=== PATIENT | female | born 1965 | race Caucasian/White ===

== ENCOUNTER → 2016-10-16 | Outpatient (CLI) | payer OTHER ==
[~2016-10-16] MED LIST: ACET-1256 PO; CALC600T24 PO; IBUP-1050 PO; MULT-413 PO; TRAM-10 PO; VITBC PO
--- NOTE | 2016-10-16 11:15 | DIAGNOSTIC IMAGING REPORT ---
PELVIC ULTRASOUND, TRANSABDOMINAL AND TRANSVAGINAL HISTORY: N93.9 Abnormal uterine [id number] COMPARISON: None. FINDINGS: Uterus: 8.1 x 4.3 x 4.4 cm. No uterine masses. The uterus is retroflexed. Endometrial stripe: 3 mm in thickness. Right ovary: Obscured by overlying bowel gas. Left ovary: Normal in size and demonstrates normal color flow. Miscellaneous:No pelvic free fluid. IMPRESSION: The right ovary was obscured by overlying bowel gas. Otherwise, normal pelvic ultrasound. Electronically signed by: Easton Crawford M.D. 10/16/2016 11:14 AM Dictated Date/Time: 10/16/2016 11:12 AM
--- NOTE | 2016-10-16 15:20 | DIAGNOSTIC IMAGING REPORT ---
PELVIC ULTRASOUND, TRANSABDOMINAL AND TRANSVAGINAL HISTORY: N93.9 Abnormal uterine [id number] COMPARISON: None. FINDINGS: Uterus: 8.1 x 4.3 x 4.4 cm. No uterine masses. The uterus is retroflexed. Endometrial stripe: 3 mm in thickness. Right ovary: Obscured by overlying bowel gas. Left ovary: Normal in size and demonstrates normal color flow. Miscellaneous:No pelvic free fluid. IMPRESSION: The right ovary was obscured by overlying bowel gas. Otherwise, normal pelvic ultrasound. Electronically signed by: Easton Crawford M.D. 10/16/2016 11:14 AM Dictated Date/Time: 10/16/2016 11:12 AM
== END | disposition home or self-care (01) ==
LOC: C.ULTR 10:35
PROVIDERS: ATTEND Obstetrics & Gynecology
DX: N93.9 Abnormal uterine and vaginal bleeding, unspecified (principal)

== ENCOUNTER → 2016-10-20 | Outpatient (CLI) | payer OTHER ==
--- NOTE | 2016-10-21 12:35 | MAMMOGRAPHY REPORT ---
BILATERAL DIGITAL SCREENING MAMMOGRAM TOMOSYNTHESIS WITH CAD: 10/20/2016 CLINICAL HISTORY: Routine screening. Patient has no complaints. TECHNIQUE: Breast tomosynthesis in addition to standard 2D mammography was performed. Current study was also evaluated with a Computer Aided Detection (CAD) system. COMPARISON: Comparison is made to exams dated: 10/17/2015 mammogram, 10/02/2013 mammogram, 10/04/2014 mammogram, 07/28/2012 mammogram, 07/31/2011 ultrasound, and 07/08/2009 mammogram - [facility]. BREAST COMPOSITION: The tissue of both breasts is heterogeneously dense, which may obscure small ma sses. FINDINGS: The parenchymal pattern is similar to prior exams. No developing mass, architectural dist ortion or cluster of suspicious microcalcifications is seen. IMPRESSION: ACR BI-RADS CATEGORY 2: BENIGN There is no mammographic evidence of malignancy. A 1 year screening mammogram is recommended. The p atient will receive written notification of the results. Approximately 10% of breast cancers are not detected with mammography. A negative mammographic repor t should not delay biopsy if a clinically suggestive mass is present. Lyndsey Hung M.D. ay/:10/20/2016 17:02:32 Corporate Quality Manager: Ailyn COBB(R)(M), [facility] letter sent: Normal 1/2 BI-RADS Code: ACR BI-RADS Category 2: Benign
== END | disposition home or self-care (01) ==
LOC: C.MAMM 09:03
PROVIDERS: ATTEND Obstetrics & Gynecology
DX: Z12.31 Encounter for screening mammogram for malignant neoplasm of breast (principal)

== ENCOUNTER → 2016-11-18 | Outpatient (CLI) | payer OTHER ==
[2016-11-18 14:40] LABS: BASO % 0.4 %; BASO ABS # 0.02 K/uL (0-0.2); COMPLETE YES; EOS % 2.3 %; HEMATOCRIT 41.7 % (37-47); LYMPH % 21.9 %; LYMPH ABS # 1.04 K/uL (1.2-3.4); MEAN CELL VOLUME 86.3 fL (80-100); MEAN CORPUSCULAR HGB CONC 33.6 g/dl (32-36); MEAN PLATELET VOLUME 10.8 fL (7.4-10.4); MONO % 7.4 %; PLATELET COUNT 222 K/uL (130-400); RED BLOOD COUNT 4.83 M/uL (4.2-5.4); WHITE BLOOD COUNT 4.75 K/uL (4.8-10.8)
[2016-11-18 15:04] LABS: ALT/SGPT 12 U/L (12-78); BLOOD UREA NITROGEN 14 mg/dl (7-18); BUN/CREATININE RATIO 19.6 (10-20); CARBON DIOXIDE 33 mmol/L (21-32); CHLORIDE 104 mmol/L (98-107); CREATININE 0.69 mg/dl (0.60-1.20); GLUCOSE 90 mg/dl (70-99); SODIUM 141 mmol/L (136-145); TRIGLYCERIDES 142 mg/dl (0-150); VERY LOW DENSITY LIPOPROT CALC 28 mg/dl
[2016-11-18 15:14] LABS: ALB/GLOB RATIO 1.2 (0.9-2); ALKALINE PHOSPHATASE 45 U/L (45-117); AST/SGOT 14 U/L (15-37); CHOLESTEROL 197 mg/dl (0-200); CHOLESTEROL/HDL RATIO 2.5; HDL CHOLESTEROL 78 mg/dl; LDL CHOLESTEROL CALCULATED 91 mg/dl
[2016-11-18 15:50] LABS: LYME DISEASE AB IGG NEG (NEG); LYME DISEASE AB IGM NEG (NEG)
== END | disposition home or self-care (01) ==
LOC: C.LABBC 10:14
PROVIDERS: ATTEND Internal Medicine Geriatric Medicine
DX: Z00.00 Encounter for general adult medical examination without abnormal findings (principal); N92.0 Excessive and frequent menstruation with regular cycle; M54.12 Radiculopathy, cervical region; M54.16 Radiculopathy, lumbar region

== ENCOUNTER → 2017-02-03 | Outpatient (CLI) | payer OTHER ==
[~2017-02-03] MED LIST changes: -TRAM-10 PO
== END | disposition home or self-care (01) ==
LOC: C.PAPS 13:39
PROVIDERS: ATTEND Obstetrics & Gynecology
DX: Z01.419 Encounter for gynecological examination (general) (routine) without abnormal findings (principal)

== ENCOUNTER → 2017-07-23 | Outpatient (CLI) | payer OTHER ==
--- NOTE | 2017-07-23 15:50 | DIAGNOSTIC IMAGING REPORT ---
RIGHT KNEE MRI HISTORY: RT KNEE PAIN COMPARISON STUDY: Right knee 07/23/2017. TECHNIQUE: Multiplanar multisequence MRI of the right knee was performed according to standard department protocol without the use of contrast. FINDINGS: Menisci: There is a bucket-handle tear of the medial meniscus with the flipped fragment extending into the intercondylar notch. There is also a complex tear at the anterior horn of the lateral meniscus and at the posterior root of the lateral meniscus. Ligaments: Status post ACL repair. The graft appears intact. The PCL appears to be atrophic suggesting an old partial tear. The LCL is intact. There is edema surrounding the intact MCL. Extensor mechanism: There is a split tear through the patellar ligament with fat herniating through the tear. There is no surrounding edema to suggest an acute injury. Therefore, this likely represents old postoperative change. The quadriceps tendon is intact. Articular cartilage and bone: No acute fracture or dislocation. Normal marrow signal intensity seen throughout the visualized osseous structures. Moderate to space narrowing at the patellofemoral compartment. Mild caudal space narrowing within the medial compartment of the knee and severe cartilage space narrowing within the lateral compartment of the knee. This is consistent with degenerative change. Joint effusion: Small. Soft tissues: There is a 7 x 2.2 x 1.8 cm popliteal cyst. There is fluid surrounding the popliteal cysts suggesting the possibility of a partial rupture. There is mild edema surrounding the knee. There is a filling defect within the mid popliteal vein raising the possibility of a nonocclusive DVT. IMPRESSION: 1. Medial and lateral meniscal tears as described above. The medial meniscus tear appears to represent a bucket-handle tear with the flipped fragment extending into the intercondylar notch. 2. Prior ACL repair. The graft appears intact. 3. Atrophic PCL suggesting an old partial tear. 4. Split tear through the patella with fat herniating through the tear. There is no surrounding edema to suggest an acute injury. Therefore, this likely represent old postoperative change. 5. Tricompartmental osteoarthritis as described above. 6. There is suggestion of a filling defect within the mid popliteal vein concerning for a nonocclusive DVT. Follow-up venous Doppler study is recommended for confirmation. 7. Suggestion of a partially ruptured popliteal cyst. 8. Small joint effusion. 9. These findings were discussed with the patient's physician assistant plant controller, Leanna Lopez, at 4:00 PM on 07/23/2017. Electronically signed by: Easton Crawford M.D. 07/23/2017 4:00 PM Dictated Date/Time: 07/23/2017 3:37 PM
== END | disposition home or self-care (01) ==
LOC: C.MRIBC 14:40
PROVIDERS: ATTEND Physician Assistant
DX: M25.561 Pain in right knee (principal)

== ENCOUNTER → 2017-07-23 | Outpatient (CLI) | payer OTHER | END | disposition home or self-care (01) | LOC: C.RDSM 08:37 | PROVIDERS: ATTEND Physician Assistant | DX: M25.561 Pain in right knee (principal) ==

== ENCOUNTER → 2017-07-30 | Outpatient (CLI) | payer OTHER ==
[~2017-07-30] MED LIST changes: +ASPI325T45 PO; +HYDR-5688 PO
== END | disposition home or self-care (01) ==
LOC: C.RDSM 09:50
PROVIDERS: ATTEND Physical Medicine & Rehabilitation Sports Medicine
DX: M25.561 Pain in right knee (principal); M25.562 Pain in left knee

== ENCOUNTER → 2017-08-05 | Day surgery (SDC) | payer OTHER ==
[2017-08-03 08:07] VITALS: Ht 167.6 cm; Wt 50.0 kg
[~2017-08-05] VITALS: Ht 167.6 cm; Wt 50.0 kg
[~2017-08-05] MED LIST changes: +ATROPINE SULFATE 0.1 MG/ML 5ML SYR IV PRN; +CEFAZOLIN SOD 1000MG/5 ML IV PUSH IV SCH; +DEXAMETHASONE SOD INJ 4 MG/ML VIAL ONE; +EpHEDrine SULFATE INJ 50 MG/ML AMP IV PRN; +FENTANYL CITRATE INJ 50 MCG/1 ML 2 ML VIAL ONE; +HYDROmorphone INJ 1 MG/ML SYR IV PRN; +LACTATED RINGER'S 1000ML 1,000 ML IV SCH; +LIDOCAINE HCL 2% 2 ML VIAL (20MG/ML) ONE; +LIDOCAINE/EPINEPHRINE 1% INJ 50 ML VIAL ONE; +MIDAZOLAM HCL 1 MG/ML 2ML VIAL ONE; +MoRPHine SULFATE 2 MG/ML CARP IV PRN; +MoRPHine SULFATE 4 MG/ML 1 ML CARP\\VIAL IV PRN; +ONDANSETRON INJ 2 MG/ML 2 ML VIAL IV PRN; +ONDANSETRON INJ 2 MG/ML 2 ML VIAL ONE; +OXYCODONE/ACETAMINOPHEN 5-325 TAB PO PRN; +PROPOFOL IV EMULSION 10 MG/ML 20 ML VIAL IV ONE; +SODIUM CHLORIDE 0.9% 1000ML 1,000 ML IV SCH
--- NOTE | 2017-08-05 07:52 | History & Physical Bridge Note ---
H&P Re-Evaluation Bridge Note: I have examined the patient, reviewed the History & Physical and in the interval since the performance of the History & Physical I have noted the following changes of clinical significance: No changes noted
--- NOTE | 2017-08-05 10:17 | [facility] Post Operative Brief Note ---
Immediate Operative Summary Operative Date Aug 05, 2017. Pre-Operative Diagnosis Right Medial Meniscus Tear, lateral meniscus tear s/p ACL reconstruction, PCL deficient Post-Operative Diagnosis Same, chondrosis Procedure(s) Performed Right knee arthroscopy, partial medial and partial lateral menisectomies, chrondroplasty Surgeon Dr. Coco Sorto Retrieval Specialist Surgeon(s) Dr. Violette Ortez MD, [facility] Estimated Blood Loss 10ML Findings as above Specimens None Drains 0 Anesthesia LMA Complication(s) None Disposition Recovery Room / PACU
--- NOTE | 2017-08-05 10:20 | Discharge Instructions-SurgCtr ---
Discharge Instructions Date of Service Aug 05, 2017. Visit Reason for Visit: Right Knee Medial Meniscus Tear Discharge Discharge Diagnosis / Problem: Right knee medial mensicus tear Discharge Goals Goal(s): Decrease discomfort, Improve function, Increase independence Activity Recommendations Activity Limitations: per Instructions/Follow-up section Weightbearing Status: Right weightbearing (as tolerated) Anesthesia . Post Anesthesia Instructions: If you have had General Anesthesia or IV Sedation: * Do not drive today. * Resume driving when surgeon permits. * Do not make important decisions or sign legal documents today. * Call surgeon for: 1. Temperature elevations greater than 101 degrees F. 2. Uncontrollable pain. 3. Excessive bleeding. 4. Persistent nausea and vomiting. 5. Medication intolerance (nausea, vomiting or rash). * For nausea and vomiting use only clear liquids such as: tea, soda, bouillon until nausea subsides, then gradually increase diet as tolerated. * If you have any concerns or questions, call your surgeon's office. If physician is unavailable and it is an emergency, call 911 or go to the nearest emergency room. . Instructions / Follow-Up Instructions / Follow-Up The following are instructions to follow after your Arthroscopic Knee Surgery. ACTIVITY RECOMMENDATIONS: * Minimize activity until your first visit after surgery. * No excessive walking, jogging, sports or laboring. * Return to activity is individualized. Most patients are able to return to every day activities within one month. * Return to sports or intensive labor usually occurs at 2-3 months. * Driving is not permitted until at least your first postoperative visit at a minimum. Please ask your doctor when it is safe to resume driving. If you have an automatic vehicle and your left leg has been operated on, then you may begin driving as soon as you are comfortable and can drive safely. SCHOOL/WORK RECOMMENDATIONS: * You may return to sedentary work or school when you are feeling more comfortable. This is usually 3-7 days after surgery. * Expect increased discomfort with increased activity. Continue to elevate and ice the leg as much as possible. MEDICATIONS: * You will have a prescription for pain medication and an anti-inflammatory medication after surgery. * Use the pain medication for severe pain and the anti-inflammatory for less severe pain. Once the pain medication has run out, try to use the anti-inflammatory medication. If this is not effective, contact the office for assistance. * The pain medication may cause nausea, constipation and drowsiness. You should see how they affect you before driving or similar activity. * The anti-inflammatory medication may cause stomach upset and bleeding. If this occurs let your doctor know immediately . * Take a stool softener like Colace or a laxative like Senokot to prevent constipation. DIET: * Resume previous diet. SPECIAL CARE: ICE: You have the option of an ice cooler, gel packs or ice bags. * If you have an ice cooler, refer to the instructions for that device. The ice cooler may be used continuously. * If you do not have an ice cooler, you will need to use ice bags or gel packs. Do not apply ice directly to the skin. Use a thin dressing or bárbara shirt between the skin and ice bag. Apply ice for 20-30 minutes and repeat every 2-4 hours. This is especially important for the first 7-10 days after surgery. Once the pain improves, use ice as needed. ELEVATION: * Keep your leg elevated at or above the level of your heart as much as possible. * Expect some increased discomfort and swelling if you are standing for any length of time. * When lying down, avoid placing anything under your knee. Rather, prop your leg up by placing several pillows under your heel or calf. DRESSING: * Your dressing will be changed at your first therapy appointment approximately 4-5 days after surgery. Band-aids, tape strips or gauze may be applied. You may then change your dressing daily. * Reapply dressing followed by the Renaldo wrap or Tubi-manager material stockinet and EBIce cooling pad (if chosen). * Always wash your hands prior to touching the incision area. * Once the stitches are removed, you may leave the wound open to air or cover with an Renaldo wrap or Tubi-manager material stockinet. * If you have been given a white elastic stocking (ALTAF hose), wear as much as possible for the first 1-3 weeks depending on swelling. * Expect some bloody drainage for the first few days after surgery. * Leave the tape strips, if present, in place for 5-7 days. * Band-aids and gauze may be changed daily. CRUTCHES: * You will need to use crutches after surgery. * You may gradually progress to full weight bearing as tolerated and wean off the crutches unless otherwise advised. * Your therapist can provide assistance weaning off crutches. * Patients who have a microfracture done may need to be toe-touch weight- bearing for 4-6 weeks. BATHING: * You may shower or sponge-bathe immediately after surgery. * The dressing will need to be covered with a plastic bag or plastic wrap until the dressing is changed on the fourth or fifth day after surgery. * Once the dressing has been changed on the fourth or fifth day after surgery, you may shower and get the incision wet. * Wash with regular soap and water. * Do not bathe (submerge the incision), soak, swim or use a hot tub until the incision is completely healed over with normal skin and the doctor has given the OK to proceed. * There is no need to apply any ointments, powders or salves to your incision. * Do not apply alcohol or hydrogen peroxide directly to the incision. * Diluted peroxide (50:50 mixture with sterile saline) may be used to clean dried blood from around the incision area. BRACE: * Bracing is generally not needed after routine Arthroscopic Knee surgery. THERAPY: * You will begin therapy four or five days after surgery. * Organized therapy with the therapist is important for the first 4-6 weeks after surgery. During that time you will attend therapy 1-3 times per week. * You will also need to do daily exercises for range of motion and strength as instructed. PROBLEMS/QUESTIONS: * If you have any problems such as severe pain, numbness, tingling or high fevers or if you have any questions, please contact the office at [phone]. * It is not uncommon to have some numbness and tingling after the surgery especially if you have had a nerve block done. This should gradually improve over the first 1- 2 days. If this persists longer or worsens please contact the office. FOLLOW UP VISIT: * If not already scheduled, please call the office at to schedule a follow-up appointment for 10 days, 6 weeks and 3 months after surgery. * You have a physical therapy appointment on 08/09/17 at 4:00 p.m. * You have a follow up appointment scheduled with Dr. Sorto on 08/18/17 at 11:45 a.m. Diet Recommendations Home Diet: no limitations, resume previous diet Procedures Procedures Performed: Right knee arthroscopy, partial medial and partial lateral menisectomies, chrondroplasty Pending Studies Studies pending at discharge: no Medical Emergencies . Who to Call and When: Medical Emergencies: If at any time you feel your situation is an emergency, please call 911 immediately. . Non-Emergent Contact Non-Emergency issues call your: Surgeon Call Non-Emergent contact if: temperature is above 101, your pain is not controlled, your pain is worsening, wound has increased drainage, wound has increased redness, wound has increased pain, you have any medication questions . . "Provider Documentation" section prepared by Leanna Lopez. .
--- NOTE | 2017-08-05 10:25 | [facility] Operative Report ---
Operative Report Operative Date Aug 05, 2017. Pre-Operative Diagnosis Right Medial Meniscus Tear, lateral meniscus tear s/p ACL reconstruction, PCL deficient Post-Operative Diagnosis Same, chondrosis Procedure(s) Performed Right knee arthroscopy, partial medial and partial lateral menisectomies, chrondroplasty Surgeon Dr. Frank Sorto [place]er Surgeon(s) Dr. Alex Ortez MD, Leanna Lopez PA-C Estimated Blood Loss 10ML Findings medial and latera meniscus tears, chondrosis Specimens None Drains 0 Anesthesia LMA Complication(s) None Disposition Recovery Room / PACU Indications Patient is a 52 year old female with complaints of right knee pain that worsened approximately 3 weeks ago very suddenly. She denied any known injuries , had some knee pain on and off for years leading up to this. X-rays show DJD right knee with retained hardware. MRI obtained, found to have bucket handle medial meniscus tear, lateral meniscus tears and chondrosis throughout right knee. Surgical intervention vs conservative treatment discussed, she wished to proceed with surgery. Risks/complications discussed, informed consent obtained. Description of Procedure Patient was taken to the operating room, placed under general anesthesia. Time out performed, given 1 gm IV Ancef for surgical prophylaxis. She was prepped and draped in routine sterile fashion. I was present during the entire case, please see Dr. Sorto's operative report for further detail. Patient was awakened and taken to the recovery room in stable condition. I attest to the content of the Intraoperative Record and any orders documented therein. Any exceptions are noted below.
[2017-08-05] MEDS: FENTANYL CITRATE INJ 50 MCG/1 ML 2 ML VIAL IV PRN ×4 (10:35→11:05)
--- NOTE | 2017-08-05 11:11 | Anesthesia Progress Nt - [facility] ---
Anesthesia Post Op Note Date & Time Aug 05, 2017 at 11:11 Vital Signs Pain Intensity: 8.0 Vital Signs Past 12 Hours Date Time Temp Pulse Resp B/P (MAP) Pulse Ox O2 Delivery O2 Flow Rate FiO2 08/05/17 10:58 76 17 08/05/17 10:58 78 17 97 08/05/17 10:56 116/78 08/05/17 10:53 71 16 08/05/17 10:53 71 16 97 08/05/17 10:51 122/75 08/05/17 10:48 78 14 99 08/05/17 10:48 78 14 08/05/17 10:47 81 13 08/05/17 10:47 82 13 98 08/05/17 10:46 127/70 08/05/17 10:42 72 13 100 08/05/17 10:42 73 13 08/05/17 10:41 113/72 08/05/17 10:37 72 13 08/05/17 10:37 71 13 100 08/05/17 10:36 115/73 08/05/17 10:35 74 15 08/05/17 10:35 73 15 100 08/05/17 10:31 123/74 08/05/17 10:30 77 12 08/05/17 10:30 77 12 100 08/05/17 10:26 116/66 08/05/17 10:25 80 11 100 08/05/17 10:25 79 11 08/05/17 10:24 75 12 100 08/05/17 10:24 76 12 08/05/17 10:21 117/75 08/05/17 10:19 80 18 08/05/17 10:19 80 18 100 08/05/17 10:16 113/79 08/05/17 10:15 37.2 86 16 118/76 100 Mask 6 08/05/17 10:14 92 11 118/76 100 08/05/17 10:14 93 11 08/05/17 07:29 36.5 72 16 123/80 (94) 100 Room Air Notes Mental Status: alert / awake / arousable, participated in evaluation Pt Amnestic to Procedure: Yes Nausea / Vomiting: adequately controlled Pain: adequately controlled Airway Patency, RR, SpO2: stable & adequate BP & HR: stable & adequate Hydration State: stable & adequate Anesthetic Complications: no major complications apparent
--- NOTE | 2017-08-05 11:27 | OPERATIVE REPORT ---
DATE OF OPERATION: 08/05/2017 PREOPERATIVE DIAGNOSES: Right knee medial and lateral meniscus tears, status post anterior cruciate ligament reconstruction and chronic posterior cruciate ligament deficiency. POSTOPERATIVE DIAGNOSES: Same plus chondrosis. PROCEDURES: Right knee arthroscopy, arthroscopic partial medial and lateral meniscectomies and chondroplasty. SURGEON: Dr. Frank Sorto. [employer] ESTATE INTERNSHIP: Leanna Lopez, physician's application assistant and Alex Ortez, fellow. ANESTHESIA: Laryngeal mask. INDICATIONS OF PROCEDURE: The patient is a 52-year-old female who has a remote history of a multi-ligament knee injury. She was treated many years ago with an ACL reconstruction. She is chronically PCL deficient. She has experienced recent onset of knee pain and swelling. X-rays show minimal degenerative change. MRI shows a bucket-handle tear of the medial meniscus and tearing of the lateral meniscus as well. Treatment options, risks and benefits were discussed and she elected to proceed with operative intervention. PROCEDURE IN DETAIL: Informed consent was obtained. The patient was identified as Martine Carmichael. She identified the operative site as the right knee. I marked it with my initials. A preoperative surgical timeout was performed and a preop dose of IV antibiotics was given. She was taken to the operating room, positioned supine on the operating room table and the anesthetic was administered. Care was taken at all times with positioning as she has a chronic problem with her back. She was comfortably positioned while awake. The examination under anesthesia revealed full extension and flexion to about 145 degrees, which was about 5-10 degrees less than the contralateral side. She had a small knee effusion. Her Jean-Claude was trace to 1+ positive with an intact endpoint and she did not have a pivot shift. She did have grade 2 posterior drawer and 1+ laxity of her MCL. The leg was prepped and draped in the usual sterile fashion. No tourniquet was utilized. A lateral post used for stressing the knee. DVT prophylaxis was foot pumps intraoperatively and postoperatively with early mobility and aspirin. 1% lidocaine with epinephrine was injected into the knee joint, fat pad and portal sites preoperatively. Inferolateral viewing portal, superolateral outflow portal, and inferomedial working portal were established. Diagnostic arthroscopy was performed. Prior arthroscopic portals were utilized where appropriate. Generalized synovitis was noted throughout the knee and removed as encountered. There were no loose bodies. The trochlea was normal, but the anterior aspect of the medial and lateral condyles showed some grade 2 chondrosis over an area about the size of a quarter. She had diffuse grade 1 and 2 chondrosis on the undersurface of the patella, which was debrided. There were no full thickness or high grade defects noted. The medial and lateral gutters were unremarkable. Popliteus was normal. She had significant synovitis in the front of the knee, which was resected along with the fat pad. The PCL was noted to be atrophic and it appeared that the posterior band was intact, but the anterior portion was missing. The ACL graft appeared intact perhaps slightly vertical, but have reasonable tension in it and was left as it is. The lateral meniscus showed significant fraying in its anterior portion, which was debrided with the shaver. There was partial tearing present there. The posterior horn showed partial tearing as well and partial attachment near the meniscal root. The meniscal root remained intact. The posterior horn fraying was debrided. There was undersurface fraying noted, which was also debrided with a shaver. The popliteal hiatus was normal. The lateral meniscus was otherwise stable and I could not displace it into the knee joint and this left the vast majority of the meniscus intact after debriding the macerated fraying on its undersurface. The lateral meniscus was then stable. In the lateral compartment, the tibial plateau showed diffuse grade 1 and 2 changes. On the lateral aspect of the tibial eminence, there was grade 4 change present, but not necessarily in the weightbearing area. The femoral condyle was normal with some grade 1 changes in an area towards the posterior lateral aspect weightbearing tibiofemoral articulation of the femoral condyle, which had an area of grade 2 and perhaps grade 3 chondrosis about 1.5 cm in diameter. The posteromedial and lateral compartments were unremarkable except for synovitis and no loose bodies. Initially upon entering the knee, a bucket-handle tear of the medial meniscus was identified. This was reduced. For multiple reasons, the meniscus was not appropriate for repairing including degenerated tissue, location of the tear, age of the patient and stability of the knee. The bucket handle was removed by amputating it posteriorly and then anteriorly and completely removing it. The remainder of the meniscal rim was trimmed with a basket forceps and a motorized shaver. The remainder of the medial meniscus was normal. There were some grade 1 and 2 chondrosis of the tibial plateau. The femoral condyle showed some grade 1 softening and fissuring, but otherwise no significant defects. No microfracture was needed. The shaver was run through the knee to continuous pickling line pickler loose debris. She did have some fluid extravasation into the prepatellar bursa likely due to her small knee and prior surgery. The arthroscopic portals were closed with 4-0 nylon. Soft sterile dressing was applied consisting of Xeroform, 4 x 4's, ABD and an Renaldo wrap. She was awakened from anesthesia without difficulty and taken to the recovery room in stable condition. There were no specimens or complications. Counts were correct at the end of the case. Blood loss was minimal. At the conclusion of the operation, I spoke to the patient's and informed him of my findings. Detailed postoperative instructions were given. She will be rehabilitated according to the arthroscopic meniscectomy and chondroplasty protocol. She can have range of motion and weightbearing as tolerated. I attest to the content of the Intraoperative Record and any orders documented therein. Any exception s are noted below.
[2017-08-05 11:32] VITALS: TEMP 36.8
[2017-08-05 12:31] VITALS: BP 117/68; PULSE 66; O2SAT 100
== END | disposition home or self-care (01) ==
LOC: X.SURG 08-03 10:22
PROVIDERS: ATTEND Physical Medicine & Rehabilitation Sports Medicine
DX: S83.281A Other tear of lateral meniscus, current injury, right knee, initial encounter (principal); S83.241A Other tear of medial meniscus, current injury, right knee, initial encounter; X58.XXXA Exposure to other specified factors, initial encounter; M89.461 Other hypertrophic osteoarthropathy, right lower leg; G89.29 Other chronic pain; M51.16 Intervertebral disc disorders with radiculopathy, lumbar region; Z79.899 Other long term (current) drug therapy

== ENCOUNTER → 2017-10-22 | Outpatient (CLI) | payer OTHER ==
[~2017-10-22] MED LIST changes: -ATROPINE SULFATE 0.1 MG/ML 5ML SYR IV PRN; -CEFAZOLIN SOD 1000MG/5 ML IV PUSH IV SCH; -DEXAMETHASONE SOD INJ 4 MG/ML VIAL ONE; -EpHEDrine SULFATE INJ 50 MG/ML AMP IV PRN; -FENTANYL CITRATE INJ 50 MCG/1 ML 2 ML VIAL ONE; -HYDROmorphone INJ 1 MG/ML SYR IV PRN; -LACTATED RINGER'S 1000ML 1,000 ML IV SCH; -LIDOCAINE HCL 2% 2 ML VIAL (20MG/ML) ONE; -LIDOCAINE/EPINEPHRINE 1% INJ 50 ML VIAL ONE; -MIDAZOLAM HCL 1 MG/ML 2ML VIAL ONE; -MoRPHine SULFATE 2 MG/ML CARP IV PRN; -MoRPHine SULFATE 4 MG/ML 1 ML CARP\\VIAL IV PRN; -ONDANSETRON INJ 2 MG/ML 2 ML VIAL IV PRN; -ONDANSETRON INJ 2 MG/ML 2 ML VIAL ONE; -OXYCODONE/ACETAMINOPHEN 5-325 TAB PO PRN; -PROPOFOL IV EMULSION 10 MG/ML 20 ML VIAL IV ONE; -SODIUM CHLORIDE 0.9% 1000ML 1,000 ML IV SCH
--- NOTE | 2017-10-25 15:40 | MAMMOGRAPHY REPORT ---
BILATERAL DIGITAL SCREENING MAMMOGRAM TOMOSYNTHESIS WITH CAD: 10/22/2017 CLINICAL HISTORY: Routine screening. Patient has no complaints. TECHNIQUE: Breast tomosynthesis in addition to standard 2D mammography was performed. Current study was also evaluated with a Computer Aided Detection (CAD) system. COMPARISON: Comparison is made to exams dated: 10/20/2016 mammogram, 10/17/2015 mammogram, 10/04/2014 m ammogram, 10/02/2013 mammogram, 07/28/2012 mammogram, and 07/31/2011 mammogram - [facility] enter. BREAST COMPOSITION: The tissue of both breasts is heterogeneously dense, which may obscure small mas ses. FINDINGS: There is a partially visualized 8 mm asymmetry seen within the left lateral posterior meli st on the cc view only, which may represent normal overlapping fibroglandular tissue although spot co mpression tomosynthesis views, left XCCL view, and possible breast ultrasound are recommended for fur ther evaluation. The remainder of both breasts are stable compared to prior exams, without suspicious masses, calcific ations, or areas of architectural distortion noted. IMPRESSION: ACR BI-RADS CATEGORY 0: INCOMPLETE EVALUATION: NEED ADDITIONAL IMAGING EVALUATION Left breast asymmetry, for which additional imaging evaluation is recommended. The patient will be c alled to schedule an appointment. Approximately 10% of breast cancers are not detected with mammography. A negative mammographic report should not delay biopsy if a clinically suggestive mass is present. Jennifer Mathew M.D. ah/:10/22/2017 15:36:06 Heading Pinner: [facility](Maranda)(Beronica)(LISA), [facility] letter sent: Addl Imaging 0 BI-RADS Code: ACR BI-RADS Category 0: Incomplete Evaluation: Need Additional Imaging Evaluation
== END | disposition home or self-care (01) ==
LOC: C.MAMM 08:29
PROVIDERS: ATTEND Obstetrics & Gynecology
DX: Z12.31 Encounter for screening mammogram for malignant neoplasm of breast (principal); N64.89 Other specified disorders of breast

== ENCOUNTER → 2017-11-03 | Outpatient (CLI) | payer OTHER ==
--- NOTE | 2017-11-03 15:37 | MAMMOGRAPHY REPORT ---
UNILATERAL LEFT DIGITAL DIAGNOSTIC MAMMOGRAM TOMOSYNTHESIS AND TARGETED LEFT ULTRASOUND: 11/03/2017 CLINICAL HISTORY: Callback from screening mammogram for left breast asymmetry. TECHNIQUE: Breast tomosynthesis in addition to standard 2D mammography was performed. Spot compress ion left CC and MLO 2D and tomosynthesis images and left XCCL tomosynthesis images were obtained. COMPARISON: Comparison is made to exams dated: 10/22/2017 mammogram, 10/20/2016 mammogram, 10/17/2015 ma mmogram, 10/04/2014 mammogram, 10/02/2013 mammogram, and 07/28/2012 mammogram - [facility] nter. BREAST COMPOSITION: The tissue of the left breast is heterogeneously dense, which may obscure small masses. FINDINGS: Spot compression views demonstrate a circumscribed oval 8 mm mass within the left upper out er quadrant posteriorly, which corresponds with the asymmetry seen on recent screening mammogram. Th e mass appears stable on MLO views dating back to at least the September 2013 exam, and is probably be nign given long-term stability. Targeted ultrasound was performed of the left upper outer quadrant in the region of the mammographic mass. In the left breast at 3:00, 6 cm from the nipple, there is an oval circumscribed anechoic cyst ic-appearing mass which measures 6 x 4 x 4 mm. A few thin internal septations are seen within the ma ss. This likely corresponds with the mammographic mass which has been stable dating back to 2013. A lternatively, the mammographic mass could represent a normal lymph node which is sonographically occu lt. The mass is probably benign and likely represents a mildly complicated cyst. Incidentally noted in the left breast at 1:00, 2 cm from the nipple, is a round circumscribed partially anechoic and pa rtially isoechoic to by 2 mm mass, which is probably benign and likely also represents a complicated cyst. IMPRESSION: ACR-BI-RADS CATEGORY 3: PROBABLY BENIGN, TARGETED ULTRASOUND ACR-BI-RADS CATEGORY 3: PRO BABLY BENIGN Circumscribed 8 mm mass within the left upper outer quadrant has been stable mammographically dating back to the 2013 exam and is likely benign given long-term stability. A cystic 6 mm mass is seen wit hin the left 3:00 breast on ultrasound, which may correspond with the stable mammographic mass and is probably benign and likely represents a complicated cyst. Another 2 mm mass within the left 1:00 br east is probably benign and likely represents a complicated cyst. Recommend follow-up diagnostic coty osynthesis mammograms and possible ultrasound of the left breast in 6 months to confirm stability of the mammographic and sonographic findings. The patient has been verbally notified of the results. Approximately 10% of breast cancers are not detected with mammography. A negative mammographic report should not delay biopsy if a clinically suggestive mass is present. Jennifer Mathew M.D. ah/:11/03/2017 09:06:53 Switch Operator: Ni Monteiro, [facility] letter sent: Follow Up Recommended 3 BI-RADS Code: ACR-BI-RADS Category 3: Probably Benign Ultrasound BI-RADS: ACR-BI-RADS Category 3: Pr obably Benign
== END | disposition home or self-care (01) ==
LOC: C.MAMM 08:16
PROVIDERS: ATTEND Obstetrics & Gynecology
DX: N64.89 Other specified disorders of breast (principal); N63.21 Unspecified lump in the left breast, upper outer quadrant

== ENCOUNTER 2021-11-17 14:01 | Observation (INO) ==
[2021-11-17] MEDS ORDERED: Heparin IV Adult Wt-Based Standard *NO* Bolus Protocol ONE (14:11)
--- NOTE | 2021-11-17 14:15 | Emergency Department Note ---
Impression & Plan Pulmonary embolism, DVT (deep venous thrombosis) ED Provider Note NAME: AMBER MERRILL AGE: 56 SEX: F : 1965 ARRIVES VIA: Walk-In INFORMANT: Patient ED PROVIDER(S): Dusty Camarena DO CHIEF COMPLAINT: Chest pain HPI: Patient is a 56-year-old female who presents the ER for right upper chest pain. This has been present since this past Wednesday. She admits to shortness of breath associated with it. She notes that she is been more rundown when she is exercising. She did discuss with her PCP and consequently ordered a CT of her chest today. This was positive which showed PEs in the segmental arteries of the right lower lobe. There is no heart strain seen on this. She admits to a recent surgery performed on July 30 at [facility] on her lumbar spine. She has some bleeding in her belly after this but did well. She is unsure of exactly what was bleeding. She denies any blood thinners. No previous brain bleeds. No coughing up or vomiting blood. No dark tarry stools. No hematuria. No other recent surgeries. No other exacerbating or remitting factors at this time. ROS: See above HPI for pertinent positives & negatives. A total of 10 systems reviewed and were otherwise negative. PAST MEDICAL HISTORY:See Below PAST SURGICAL HISTORY:See Below FAMILY HISTORY:See Below SOCIAL HISTORY:See Below HOME MEDICATIONS:See Below ALLERGIES:See Below VITALS:See Below PHYSICAL EXAMINATION: GENERAL: Sitting up in bed, alert, well appearing, well nourished, no distress, non-toxic EYE EXAM: normal conjunctiva. OROPHARYNX: no exudate, no erythema, lips, buccal mucosa, and tongue normal and mucous membranes are moist NECK: supple, no nuchal rigidity, no adenopathy, non-tender LUNGS: Clear to auscultation. Normal chest wall mechanics HEART: no murmurs, S1 normal and S2 normal ABDOMEN: abdomen soft, non-tender, normo-active bowel sounds, no masses, no rebound or guarding. UPPER EXTREMITIES: upper extremities are grossly normal. LOWER EXTREMITIES: No pitting edema. NEURO EXAM: Normal sensorium, cranial nerves II-XII grossly intact, normal speech, no gross weakness of arms, no gross weakness of legs. MEDICAL DECISION MAKING: Patient is a 56-year-old female who presents ER for above-stated complaint. IV was established blood was obtained. Labs show mild leukopenia 4.7 thousand. No significant anemia. BMP with LFTs bilirubin and lipase was unremarkable. Troponin was negative. CT of the chest was reviewed as an outpatient which showed PEs. There is no obvious heart strain. Patient did have a recent surgery and that was discussed with Brandi dale who had access to the records although was done at [facility] never transferred to [facility]'s records. There was some injury to the iliac which had IR embolization and she did well after this. This occurred in early July. As we are close to 3 months out from this procedure and she has no other bleeding risk factors did elect to start heparin low-dose to titrate up. Would hold on bolus. This was discussed with Brandi dale. Patient was updated bedside. Duplex of the right lower extremity shows DVT present. Bleeding risk and risk factors were discussed in the usual customary fashion and outside the recent surgery/bleed as previously discussed she denies all other complaints including previous brain bleeds, hemoptysis, vomiting blood, dark tarry stools or bright red blood per rectum or in the urine. Triage Nursing notes reviewed. Limited review of prior medical records performed Vital Signs: reviewed and remarkable for no significant abnormalities Differential diagnosis: Differential diagnoses includes but is not limited to acute coronary syndrome, myocardial infarction, pericarditis, pulmonary embolus, aortic dissection, pneumonia, pneumothorax, musculoskeletal, shingles, esophageal. ER treatment provided: See below Diagnostics interpreted by me: ECG: Sinus rhythm rate of 59 Normal axis No PVCs QTC 4 9 Cardiac Monitoring: An order was placed for continuous cardiac monitoring. The monitor shows a rate of 70 with sinus rhythm. Laboratory studies: As stated above and show below. Imaging studies: See below Consultation(s): Discussed with Brandi dale for further evaluation Procedures: none Critical Care: I have personally spent 32 minutes of critical care time in the direct management of this patient. This includes bedside care, interpretation of diagnostic studies, and testing, discussion with consultants, patient, and family members, and other required patient management activities. This 32 minutes is in excess of all separately billable procedures. Past Med/Surg History Medical History Cardiac murmur Cervical radiculopathy Chronic back pain Common migraine without aura Diverticulosis of colon History of anesthesia reaction IBS (irritable bowel syndrome) Surgical History H/O LEEP History of arthroscopy of right knee History of colposcopy History of esophagogastroduodenoscopy (EGD) History of laminectomy History of repair of ACL History of tooth extraction Status post medial meniscal repair Family History Mother Hypertension Family/Other Breast cancer Grandmother (Maternal) Ovarian cancer Denies family history of Prostate cancer Myocardial infarction Colorectal cancer Social History Smoking Status: Never smoker Second Hand Exposure: No; Do You Dip or Chew Tobacco: No; Hx Alcohol Use: Yes Alcohol type: beer Hx Substance Use: No Preferred Language: Burmese Communication Ability: Effective Spar Cap Beveler Required: No Beliefs That Will Affect Care: None Current Living Situation: Spouse Current Living Situation Comment: Lives with and 2 kids Feels Safe at Home: Yes Safety Concerns: Feels Safe At This Time Assistive Devices: None Allergies Allergies Allergy/AdvReac Type Severity Reaction Status Date / Time Fish Containing Products Allergy Mild SEAFOOD Verified 11/17/21 15:52 CAUSES RASH No Known Drug Allergies Allergy Unknown none Verified 01/01/21 09:35 Home Meds Home Medications Medication Instructions Recorded Confirmed acetaminophen 500 mg tablet 500 mg PO Q8 PRN 06/01/18 11/17/21 calcium carbonate 600 mg-vitamin 1 tab PO QAM 06/01/18 11/17/21 D3 5 mcg (200 unit) capsule (Calcium 600 + D(3)) ibuprofen 200 mg tablet 400 - 600 mg PO Q6 PRN 06/01/18 11/17/21 melatonin 1 mg tablet 1.5 mg PO HS PRN 06/01/18 11/17/21 multivitamin 1 tab PO QAM 06/01/18 11/17/21 vitamin B complex 1 tab PO QAM 06/01/18 11/17/21 vitamin E 200 unit capsule 200 unit PO QAM 06/01/18 11/17/21 baclofen 10 mg tablet 10 mg PO BID PRN 11/17/21 11/17/21 grape seed extract 50 mg capsule 150 mg PO DAILY 11/17/21 11/17/21 magnesium 250 mg tablet 250 mg PO DAILY 11/17/21 11/17/21 Results & Data (ED) Vital Signs Vital Signs - 24 hr 11/17/21 14:05 11/17/21 14:46 Temperature 36.8 C Temperature Source Oral Pulse Rate 71 Pulse Rhythm Regular Pulse Strength Normal Respiratory Rate 20 Respiratory Effort / Characteristics Non-Labored Spontaneous Respiratory Depth Normal Respiratory Pattern Regular Blood Pressure 175/102 H Blood Pressure Mean 126 Blood Pressure Position Sitting Pulse Oximetry 99 100 Oxygen Delivery Method Room Air Room Air Sepsis Recent Fever Within 48 Hours No Sepsis New/Unexplained Change in Mental Status No Sepsis Action Taken by Nursing No Action Required Laboratory Data Result diagrams: 11/17/21 14:14 11/17/21 14:14 Lab Results 11/17/21 11/17/21 11/17/21 Range/Units 14:14 14:14 14:50 WBC 4.77 L (4.8-10.8) K/uL RBC 4.74 (4.2-5.4) M/uL Hgb 14.0 (12.0-16.0) g/dL Hct 41.5 (37-47) % MCV 87.6 (80-100) fL MCH 29.5 (25-34) pg MCHC 33.7 (32-36) g/dL RDW Std Deviation 39.7 (36.4-46.3) fL RDW Coeff of Jose L 12.4 (11.5-14.5) % Plt Count 288 (130-400) K/uL MPV 9.7 (7.4-10.4) fL Immature Gran % (Auto) 0.0 % Neut % (Auto) 69.2 % Lymph % (Auto) 19.7 % [place] % (Auto) 8.8 % Eos % (Auto) 2.1 % Baso % (Auto) 0.2 % Neut # (Auto) 3.30 (1.4-6.5) K/uL Lymph # (Auto) 0.94 L (1.2-3.4) K/uL [place] # (Auto) 0.42 (0.11-0.59) K/uL Eos # (Auto) 0.10 (0-0.5) K/uL Baso # (Auto) 0.01 (0-0.2) K/uL Immature Gran # (Auto) 0.00 (0.00-0.02) K/uL Sodium 139 (136-145) mmol/L Potassium 3.9 (3.5-5.1) mmol/L Chloride 101 (98-107) mmol/L Carbon Dioxide 32 (21-32) mmol/L Anion Gap 6 (3-11) BUN 14 (6-23) mg/dl Creatinine 0.58 L (0.6-1.2) mg/dl Est Cr Clr Drug Dosing 90.1 ml/min Est GFR ( Amer) 120.3 ml/min Est GFR (Non-Af Amer) 103.8 ml/min BUN/Creatinine Ratio 24.1 H (10-20) Glucose 86 (70-99(Fasting)) mg/dl Calcium 9.6 (8.5-10.1) mg/dl Total Bilirubin 0.4 (0.2-1.0) mg/dl AST 22 (13-39) U/L ALT 7 (7-52) U/L Alkaline Phosphatase 82 (34-104) U/L Troponin I < 0.03 (0-0.04) ng/ml Total Protein 7.6 (6.0-8.3) gm/dl Albumin 4.7 (3.4-5.0) gm/dl Globulin 2.9 (2.5-4.0) gm/dl Albumin/Globulin Ratio 1.6 (0.9-2) Lipase 38 (11-82) U/L SARS-CoV-2, RNA, NAAT NEGATIVE (NEGATIVE) Administered Medications Heparin Sodium/Dextrose (Heparin Sodium/Dextrose) 25,000 units in 500 mls @ 19 mls/hr IV .Q24H [facility]; Protocol Stop: 12/17/21 14:29 Last Admin: 11/17/21 16:08 Dose: 950 units/hr, 19 mls/hr Documented by: [id number] Cosigned by: [id number] Imaging Data Radiologist's Impression: Venous Doppler Study 11/17/21 14:49 BILATERAL LOWER EXTREMITY VENOUS DOPPLER HISTORY: Acute pain and swelling of the lower legs Pes COMPARISON STUDY: Doppler study 07/23/2017. FINDINGS: There is normal compressibility, flow, and augmentation within the lef t lower extremity deep venous structures. Partially occlusive likely acute thrombus is noted within one of the duplicated posterior tibial veins extending mid to distal for a length of approximately 8.8 cm. The remaining deep venous structures of the right lower extremity appear normal. IMPRESSION: Right lower extremity DVT. ACT 112: Negative or not required by law. Electronically signed by: Bridger Sevilla M.D. 11/17/2021 4:12 PM Discharge Plan Visit Data Chief Complaint: Abnormal Labs/Diagnostic Testing Stated Complaint: UNKNOWN ED Provider: Dusty Camarena Discharge Problem: Pulmonary embolism, DVT (deep venous thrombosis) Patient Disposition: Admitted As Inpatient Discharge Instructions Interventions: ED Discharge Assessment Last Done: 11/17/21 17:26 Discharge Problem: Pulmonary embolism Qualifiers: Pulmonary embolism type: unspecified Chronicity: acute Acute cor pulmonale presence: unspecified Qualified Code(s): I26.99 - Other pulmonary embolism without acute cor pulmonale DVT (deep venous thrombosis) Qualifiers: DVT location: lower extremity Affected thrombotic vein of extremity: unspecified vein of extremity Chronicity: acute Laterality: right Qualified Code (s): I82.401 - Acute embolism and thrombosis of unspecified deep veins of right lower extremity
[2021-11-17 14:23] LABS: Basophils # (auto) 0.01 K/uL (0-0.2); Basophils % (auto) 0.2 %; Eosinophils % (auto) 2.1 %; Hematocrit (blood only) 41.5 % (37-47); Lymphocytes # (auto) 0.94 K/uL (1.2-3.4); Lymphocytes % (auto) 19.7 %; Mean Corpuscular Hemoglobin 29.5 pg (25-34); Mean Corpuscular Hgb Conc 33.7 g/dL (32-36); Mean Corpuscular Volume 87.6 fL (80-100); Mean Platelet Volume 9.7 fL (7.4-10.4); Monocytes # (auto) 0.42 K/uL (0.11-0.59); Monocytes % (auto) 8.8 %; Neutrophils % (auto) 69.2 %; Platelet Count 288 K/uL (130-400); RDW Coefficient of Variation 12.4 % (11.5-14.5); RDW Standard Deviation 39.7 fL (36.4-46.3); Red Blood Count 4.74 M/uL (4.2-5.4); White Blood Count 4.77 K/uL (4.8-10.8)
[2021-11-17] MEDS ORDERED: HEPARIN SODIUM/DEXTROSE 25,000 UNITS/500 ML BAG IV SCH (14:30)
[2021-11-17 14:38] LABS: Albumin Level 4.7 gm/dl (3.4-5.0); Anion Gap 6 (3-11); Bilirubin,Total 0.4 mg/dl (0.2-1.0); Calcium 9.6 mg/dl (8.5-10.1); Carbon Dioxide 32 mmol/L (21-32); Chloride 101 mmol/L (98-107); Potassium 3.9 mmol/L (3.5-5.1); Sodium 139 mmol/L (136-145)
[2021-11-17 14:44] LABS: Alanine Aminotransferase 7 U/L (7-52); Albumin Globulin Ratio 1.6 (0.9-2); Alkaline Phosphatase 82 U/L (34-104); Aspartate Aminotransferase 22 U/L (13-39); BUN Creatinine Ratio 24.1 (10-20); Blood Urea Nitrogen 14 mg/dl (6-23); Creatinine Clr Calc Pharmacy 90.1 ml/min; Est GFR (African American) 120.3 ml/min; Est GFR (Non-African American) 103.8 ml/min; Globulin 2.9 gm/dl (2.5-4.0); Glucose 86 mg/dl (70-99(Fasting)); Lipase 38 U/L (11-82); Total Protein 7.6 gm/dl (6.0-8.3); Troponin I < 0.03 ng/ml (0-0.04)
[2021-11-17 15:44] LABS: Prothrombin Time 10.8 Seconds (9.0-12.0)
--- NOTE | 2021-11-17 16:14 | Ultrasound Report ---
BILATERAL LOWER EXTREMITY VENOUS DOPPLER HISTORY: Acute pain and swelling of the lower legs Pes COMPARISON STUDY: Doppler study 07/23/2017. FINDINGS: There is normal compressibility, flow, and augmentation within the left lower extremity didi p venous structures. Partially occlusive likely acute thrombus is noted within one of the duplicated posterior tibial veins extending mid to distal for a length of approximately 8.8 cm. The remaining de ep venous structures of the right lower extremity appear normal. IMPRESSION: Right lower extremity DVT. ACT 112: Negative or not required by law. Electronically signed by: Bridger Sevilla M.D. 11/17/2021 4:12 PM
[2021-11-17] MEDS ORDERED: LORazepam 0.5 MG TAB PO PRN (17:37)
[2021-11-17] MEDS ORDERED: ACETAMINOPHEN 325 MG TAB PO PRN (17:37)
[2021-11-17] MEDS ORDERED: BACLOFEN 10 MG TAB PO PRN (17:37)
[2021-11-17] MEDS ORDERED: LABETALOL HCL IV 5 MG/ML 20ML IV PRN (17:37)
[2021-11-17] MEDS ORDERED: MELATONIN 3 MG TAB PO PRN (17:55)
--- NOTE | 2021-11-17 19:25 | History & Physical Report ---
Date of Service November 17, 2021 Assessment & Plan (1) Pulmonary embolism: (2) DVT (deep venous thrombosis): Plan: Admit to telemetry Patient presenting by referral PCP after outpatient CT chest for pulmonary embolism CTA chest showed Pulmonary embolus in segmental arteries of the right lower lobe Venous Doppler showed right lower extremity DVT within the posterior tibial vein Patient is current saturating well on room air Started on heparin drip in the ED, continue with History of back surgery 07/2021-postoperative course complicated by left iliac artery bleeding resulting in intraperitoneal hematoma. Monitor closely for signs of bleeding. Hgb stable today. Likely provoked DVT and PE due to recent surgery and also prolonged car ride. However still recommend that routine cancer screenings are up-to-date. Consider hypercoagulable work-up as an outpatient. (3) History of back surgery: Plan: 07/2021-total disc arthroplasty via anterior approach at [facility]. Postoperative course complicated by intraperitoneal hematoma from bleeding from the left internal iliac artery s/p coil embolization. Back surgeon Dr. Oh, Access surgeon Dr.. Angeles (4) DVT prophylaxis: Plan: On IV heparin as above Admission and Anticipated Discharge Date Admission Date: November 17, 2021 History of Present Illness Chief Complaint: Referred by PCP for evaluation of pulmonary embolism Primary Care Provider: Ayanna Wayne MD 56-year-old female with PMH recent back surgery at [facility] (total disc arthroplasty, anterior approach) -postoperative course complicated by intraperitoneal hematoma from bleeding from the left internal iliac artery s/p coil embolization. Patient reports that about 5 days ago, whenever she woke up in the morning she had a right-sided neck and shoulder pain. Reports that she " felt a knot". Patient also reported associated pleuritic chest pain and shortness of breath. Was evaluated by PCP and had a D-dimer checked that was elevated. Outpatient CTA chest today showed Pulmonary embolus in segmental arteries of the right lower lobe. Patient was referred to the ED for further evaluation. Patient reports that she has been rehabbing well from her surgery. Does note a trip to [place] a couple of weeks ago by car. Patient denies fevers and chills. No abdominal pain, nausea, vomiting, diarrhea. Denies urinary symptoms. In the ED, patient is hemodynamically stable and saturating well on room air. Labs are unremarkable. BL LE venous Doppler shows right lowe r extremity DVT. Patient was started on a heparin drip. Allergies Allergy/AdvReac Type Severity Reaction Status Date / Time Fish Containing Products Allergy Mild SEAFOOD Verified 11/17/21 15:52 CAUSES RASH No Known Drug Allergies Allergy Unknown none Verified 01/01/21 09:35 Home Medications Medication Instructions Recorded Confirmed Type acetaminophen 500 mg tablet 500 mg PO Q8 PRN 06/01/18 11/17/21 History calcium carbonate 600 mg-vitamin 1 tab PO QAM 06/01/18 11/17/21 History D3 5 mcg (200 unit) capsule (Calcium 600 + D(3)) ibuprofen 200 mg tablet 400 - 600 mg PO Q6 PRN 06/01/18 11/17/21 History melatonin 1 mg tablet 1.5 mg PO HS PRN 06/01/18 11/17/21 History multivitamin 1 tab PO QAM 06/01/18 11/17/21 History vitamin B complex 1 tab PO QAM 06/01/18 11/17/21 History vitamin E 200 unit capsule 200 unit PO QAM 06/01/18 11/17/21 History baclofen 10 mg tablet 10 mg PO BID PRN 11/17/21 11/17/21 History grape seed extract 50 mg capsule 150 mg PO DAILY 11/17/21 11/17/21 History magnesium 250 mg tablet 250 mg PO DAILY 11/17/21 11/17/21 History apixaban 5 mg (74 tabs) tablets in 5 mg PO UD #74 ea 11/18/21 Rx a dose pack (Eliquis) Past Med/Surg History Medical History Cardiac murmur as a child Carpal tunnel syndrome, right Cervical radiculopathy Chronic back pain Common migraine without aura Diverticulosis of colon History of anesthesia reaction difficulty waking up after last knee surgery IBS (irritable bowel syndrome) Occipital neuralgia Surgical History H/O LEEChuyita 1995 History of arthroscopy of right knee x2 History of back surgery 07/2021 - total disc arthroplasty, anterior approach at [facility] History of colposcopy History of esophagogastroduodenoscopy (EGD) History of laminectomy History of repair of ACL right--screws in place History of tooth extraction wisdom teeth Status post medial meniscal repair right 07/2017 Family History Mother Hypertension Family/Other Breast cancer cousin Grandmother (Maternal) Ovarian cancer Denies family history of Prostate cancer Myocardial infarction Colorectal cancer Social History Smoking Status: Never smoker Second Hand Exposure: No; Do You Dip or Chew Tobacco: No; Hx Alcohol Use: Yes Alcohol type: beer Hx Substance Use: No Preferred Language: Lao Communication Ability: Effective Part Maker Required: No Beliefs That Will Affect Care: None Current Living Situation: Spouse Current Living Situation Comment: Lives with and 2 kids Feels Safe at Home: Yes Safety Concerns: Feels Safe At This Time Assistive Devices: None Review of Systems Review of Systems: ROS per HPI, all other systems reviewed and negative Physical Exam Constitutional: WD/WN, vitals as above Eyes: PERRL, conjunctivae normal, anicteric sclerae ENMT: external ear and nose normal, oropharynx normal Respiratory: normal respiratory effort, lungs clear to auscultation Cardiovascular: Rate/Rhythm: regular rate and regular rhythm Vessels: normal peripheral pulses Extremities: no edema Gastrointestinal (Abdomen): normal bowel sounds, soft, nontender, no hepatosplenomegaly Musculoskeletal: no cyanosis or clubbing, extremities motor strength 5/5 Skin: no rashes, warm and dry Neurologic: PERRL, EOMI, accommodation nl, no face palsy, no dysarthria Psychiatric: A+Ox3, euthymic affect Results & Data Results & Data ([facility]) Vital Signs (Past 12 Hours) Vital Signs Temp Pulse Pulse Resp BP BP Pulse Ox 11/17/21 17:42 36.7 C 66 14 130/80 99 11/17/21 17:37 36.7 C 66 11/17/21 16:02 66 18 175/102 H 97 11/17/21 14:46 100 11/17/21 14:05 36.8 C 71 20 175/102 H 99 Laboratory Results Short CBC 11/17/21 Range/Units 14:14 WBC 4.77 L (4.8-10.8) K/uL Hgb 14.0 (12.0-16.0) g/dL Hct 41.5 (37-47) % Plt Count 288 (130-400) K/uL BMP 11/17/21 14:14 Sodium 139 Potassium 3.9 Chloride 101 Carbon Dioxide 32 BUN 14 Creatinine 0.58 L Glucose 86 Calcium 9.6 Cardiac Enzymes 11/17/21 Range/Units 14:14 Troponin I < 0.03 (0-0.04) ng/ml Liver Function 11/17/21 Range/Units 14:14 Total Bilirubin 0.4 (0.2-1.0) mg/dl AST 22 (13-39) U/L ALT 7 (7-52) U/L Alkaline Phosphatase 82 (34-104) U/L Albumin 4.7 (3.4-5.0) gm/dl Diagnostic Findings Venous Doppler Study 11/17/21 14:49 BILATERAL LOWER EXTREMITY VENOUS DOPPLER HISTORY: Acute pain and swelling of the lower legs Pes COMPARISON STUDY: Doppler study 07/23/2017. FINDINGS: There is normal compressibility, flow, and augmentation within the left lower extremity deep venous structures. Partially occlusive likely acute thrombus is noted within one of the duplicated posterior tibial veins extending mid to distal for a length of approximately 8.8 cm. The remaining deep venous structures of the right lower extremity appear normal. IMPRESSION: Right lower extremity DVT. ACT 112: Negative or not required by law. Electronically signed by: Bridger Sevilla M.D. 11/17/2021 4:12 PM Code Status & VTE Plan VTE Prophylaxis Plan VTE Prophylaxis will be ordered: No Supervising Physician Co-Signing Physician Notes Patient is a 56-year-old female with history of recent back surgery presents with history of right-sided neck, shoulder pain with deep breathing. Patient also states having shortness of breath on exertion. Please review HPI for complete details of presentation. CTA showed findings suggestive of pulmonary embolus in segmental arteries of the right lower lobe. Venous Doppler suggestive of right lower extremity DVT. Patient is anxious during my encounter. BP is elevated while in ED. Blood work within normal range. Initial troponin negative. EKG showed sinus rhythm, QTC 448. Physical Exam: Vitals signs as noted above General Appearance:Thin, Frail, no apparent distress Head: normocephalic, Atraumatic Eyes: normal inspection, EOMI Neck: supple, Trachea midline Respiratory/Chest: Normal breath sounds, CTA Cardiovascular: S1, S2, No murmur Abdomen/GI:Soft, Non tender, Bowel sounds present Extremities/Musculoskeletal:normal inspection, no edema Neurologic/Psych:AAOX3, grossly no focal neurological deficits Skin: normal color, warm Acute PE Acute DVT Imaging studies reviewed Started on IV heparin Monitor for any bleeding issues Trend troponins Check echo Supplemental oxygen as needed Hypertensive Urgency Likely situational secondary to anxiety Lopressor as needed I personally reviewed the record. Patient is interviewed and examined at bedside. Patient's care is coordinated with [facility] [employer]. Please refer to the documentation above for details of patient's presentation and for discussion of other issues. (1) DVT (deep venous thrombosis) Affected thrombotic vein of extremity: unspecified vein of extremity Chronicity: acute DVT location: lower extremity Laterality: right Qualified Code(s): I82.401 - Acute embolism and thrombosis of unspecified deep veins of right lower extremity (2) Pulmonary embolism Acute cor pulmonale presence: unspecified Chronicity: acute Pulmonary embolism type: unspecified Qualified Code(s): I26.99 - Other pulmonary embolism without acute cor pulmonale
[2021-11-17 22:40] LABS: INR 1.1 (0.9-1.1); Prothrombin Time 11.2 Seconds (9.0-12.0)
[2021-11-17 22:55] LABS: Partial Thromboplastin Ratio 1.9
[2021-11-17 23:13] LABS: Partial Thromboplastin Time 53.3 Seconds (21.0-31.0)
[2021-11-18 06:22] LABS: Hematocrit (blood only) 36.7 % (37-47); Hemoglobin 12.2 g/dL (12.0-16.0); Mean Corpuscular Hemoglobin 29.1 pg (25-34); Mean Corpuscular Hgb Conc 33.2 g/dL (32-36); Mean Corpuscular Volume 87.6 fL (80-100); Mean Platelet Volume 9.6 fL (7.4-10.4); Platelet Count 224 K/uL (130-400); RDW Coefficient of Variation 12.4 % (11.5-14.5); Red Blood Count 4.19 M/uL (4.2-5.4); White Blood Count 3.75 K/uL (4.8-10.8)
[2021-11-18 06:49] LABS: BUN Creatinine Ratio 35.1 (10-20); Calcium 8.7 mg/dl (8.5-10.1); Est GFR (Non-African American) 104.4 ml/min; Potassium 3.9 mmol/L (3.5-5.1)
[2021-11-18] MEDS ORDERED: PERFLUTREN LIPID MICROSPHERE (DEFINITY) IV ONE (07:21)
[2021-11-18 08:18] LABS: Partial Thromboplastin Ratio 2.8
--- NOTE | 2021-11-18 10:39 | Electrocardiogram Report ---
Test Reason : Blood Pressure : / mmHG Vent. Rate : 059 BPM Atrial Rate : 059 BPM P-R Int : 124 ms QRS Dur : 074 ms QT Int : 414 ms P-R-T Axes : 049 046 055 degrees QTc Int : 409 ms Sinus bradycardia Otherwise normal ECG When compared with ECG of 03-AUG-2017 10:41, No significant change was found Confirmed by Miles Marie ([id number]) on 11/18/2021 10:38:31 AM Referred By: REFERRED SELF Confirmed By:Miles Marie
--- NOTE | 2021-11-18 12:29 | Electrocardiogram Report ---
Test Reason : Blood Pressure : / mmHG Vent. Rate : 060 BPM Atrial Rate : 060 BPM P-R Int : 136 ms QRS Dur : 086 ms QT Int : 448 ms P-R-T Axes : 037 032 044 degrees QTc Int : 448 ms Normal sinus rhythm Normal ECG When compared with ECG of 17-NOV-2021 14:36, (unconfirmed) No significant change was found Confirmed by Miles Marie ([id number]) on 11/18/2021 12:29:35 PM Referred By: REFERRED SELF Confirmed By:Miles Marie
[2021-11-18] MEDS ORDERED: APIXABAN 5 MG TABLET PO SCH ×2 (13:00)
--- NOTE | 2021-11-18 13:05 | Hospitalist Progress Note ---
Date of Service November 18, 2021 Assessment & Plan (1) Pulmonary embolism: (2) DVT (deep venous thrombosis): Plan: Acute PE Acute RLE DVT Likely due to recent long distance travel and hospitalization --CTA:Pulmonary embolus in segmental arteries of the right lower lobe. No right heart strain is seen. --Venous Doppler:Right lower extremity DVT. --IV Heparin transitioned to Apixaban based on patient's preference -- Hypercoagulable workup as outpatient --Saturating well on room air --ECHO pending --Duration of anticoagulation to be determined --Plan to discharge home once ECHO results available Hypertensive Urgency Situational BP elevated while in ED BP much improved Monitor (3) History of back surgery: Plan: H/O Back surgery 07/2021:total disc arthroplasty via anterior approach at [facility]. Postoperative course complicated by intraperitoneal hematoma from bleeding from the left internal iliac artery s/p coil embolization. Back surgeon Dr. Oh, Access surgeon Dr.. Angeles -Refuses to have another CT ABD to eval while on IV Heparin -Denies any increased abdominal distention or abd pain -Monitor CBC (4) DVT prophylaxis: Plan: On IV heparin>>Apixaban Admission and Anticipated Discharge Date Admission Date: November 17, 2021 Subjective Patient is seen and examined at bedside Doing well today No bleeding issues while on IV heparin Denies any chest pain, dyspnea, dizziness, nausea, abd pain Eager to get discharged Poorly slept overnight Review of Systems Review of Systems: All systems reviewed & are unremarkable except as noted in Subjective Physical Exam Physical Exam: Physical Exam: Vitals signs as noted above General Appearance:Thin, Frail, no apparent distress Head: normocephalic, Atraumatic Eyes: normal inspection, EOMI Neck: supple, Trachea midline Respiratory/Chest: Normal breath sounds, CTA Cardiovascular: S1, S2, No murmur Abdomen/GI:Soft, Non tender, Bowel sounds present Extremities/Musculoskeletal:normal inspection, no edema Neurologic/Psych:AAOX3, grossly no focal neurological deficits Skin: normal color, warm Results & Data Results & Data ([facility]) Vital Signs (Past 12 Hours) Vital Signs Temp Pulse Pulse Resp BP Pulse Ox 11/18/21 11:45 36.8 C 60 16 115/61 100 11/18/21 08:00 37.0 C 59 L 18 109/60 95 11/18/21 07:28 59 L 03/29/22 04:00 36.6 C 65 18 102/62 95 Laboratory Results Short CBC 11/17/21 11/18/21 Range/Units 14:14 05:57 WBC 4.77 L 3.75 L (4.8-10.8) K/uL Hgb 14.0 12.2 (12.0-16.0) g/dL Hct 41.5 36.7 L (37-47) % Plt Count 288 224 (130-400) K/uL BMP 11/17/21 11/18/21 14:14 05:57 Sodium 139 141 Potassium 3.9 3.9 Chloride 101 104 Carbon Dioxide 32 32 BUN 14 20 Creatinine 0.58 L 0.57 L Glucose 86 88 Calcium 9.6 8.7 Cardiac Enzymes 11/17/21 11/17/21 11/18/21 Range/Units 14:14 22:20 05:57 Troponin I < 0.03 < 0.03 < 0.03 (0-0.04) ng/ml Liver Function 11/17/21 Range/Units 14:14 Total Bilirubin 0.4 (0.2-1.0) mg/dl AST 22 (13-39) U/L ALT 7 (7-52) U/L Alkaline Phosphatase 82 (34-104) U/L Albumin 4.7 (3.4-5.0) gm/dl (1) Pulmonary embolism Acute cor pulmonale presence: unspecified Chronicity: acute Pulmonary embolism type: unspecified Qualified Code(s): I26.99 - Other pulmonary embolism without acute cor pulmonale (2) DVT (deep venous thrombosis) Affected thrombotic vein of extremity: unspecified vein of extremity Chronicity: acute DVT location: lower extremity Laterality: right Qualified Code(s): I82.401 - Acute embolism and thrombosis of unspecified deep veins of right lower extremity
--- NOTE | 2021-11-18 13:42 | Discharge Summary ---
Date of Service November 18, 2021 Admission HPI Per Admitting Provider 56-year-old female with PMH recent back surgery at [facility] (total disc arthroplasty, anterior approach) -postoperative course complicated by intraperitoneal hematoma from bleeding from the left internal iliac artery s/p coil embolization. Patient reports that about 5 days ago, whenever she woke up in the morning she had a right-sided neck and shoulder pain. Reports that she " felt a knot". Patient also reported associated pleuritic chest pain and shortness of breath. Was evaluated by PCP and had a D-dimer checked that was elevated. Outpatient CTA chest today showed Pulmonary embolus in segmental arteries of the right lower lobe. Patient was referred to the ED for further evaluation. Patient reports that she has been rehabbing well from her surgery. Does note a trip to [place] a couple of weeks ago by car. Patient denies fevers and chills. No abdominal pain, nausea, vomiting, diarrhea. Denies urinary symptoms. In the ED, patient is hemodynamically stable and saturating well on room air. Labs are unremarkable. [facility] venous Doppler shows right lower extremity DVT. Patient was started on a heparin drip. Admission Exam Per Admitting Provider Physical Exam Constitutional: WD/WN, vitals as above Eyes: PERRL, conjunctivae normal, anicteric sclerae ENMT: external ear and nose normal, oropharynx normal Respiratory: normal respiratory effort, lungs clear to auscultation Cardiovascular: Rate/Rhythm: regular rate and regular rhythm Vessels: normal peripheral pulses Extremities: no edema Gastrointestinal (Abdomen): normal bowel sounds, soft, nontender, no hepatosplenomegaly Musculoskeletal: no cyanosis or clubbing, extremities motor strength 5/5 Skin: no rashes, warm and dry Neurologic: PERRL, EOMI, accommodation nl, no face palsy, no dysarthria Psychiatric: A+Ox3, euthymic affect Principal Diagnosis Acute Pulmonary Embolism Acute right leg deep vein thrombosis Discharge Data Allergies Allergy/AdvReac Type Severity Reaction Status Date / Time Fish Containing Products Allergy Mild SEAFOOD Verified 11/17/21 15:52 CAUSES RASH No Known Drug Allergies Allergy Unknown none Verified 01/01/21 09:35 Consultations 11/17/21 15:39 ED Decision to Admit Stat Ordered Studies 11/17/21 14:49 US venous doppler [facility] Stat Hospital Course (1) Pulmonary embolism: (2) DVT (deep venous thrombosis): Acute PE Acute RLE DVT Likely due to recent long distance travel and hospitalization --CTA:Pulmonary embolus in segmental arteries of the right lower lobe. No right heart strain is seen. --Venous Doppler:Right lower extremity DVT. --IV Heparin transitioned to Apixaban based on patient's preference -- Hypercoagulable workup as outpatient --Saturating well on room air --ECHO: EF 55 to 60%. Right ventricle size is normal. Right ventricle systolic function is normal. Mild tricuspid regurgitation. Doppler study do not suggest pulmonary hypertension. --Duration of anticoagulation to be determined --Plan to discharge home once ECHO results available Hypertensive Urgency Situational BP elevated while in ED BP much improved Monitor (3) History of back surgery: H/O Back surgery 07/2021:total disc arthroplasty via anterior approach at [facility]. Postoperative course complicated by intraperitoneal hematoma from bleeding from the left internal iliac artery s/p coil embolization. Back surgeon Dr. Oh, Access surgeon Dr.. Angeles -Refuses to have another CT ABD to eval while on IV Heparin -Denies any increased abdominal distention or abd pain -Monitor CBC (4) DVT prophylaxis: On IV heparin>>Apixaban Total Time Total Time Spent Total Time Spent (In Minutes): 55 minutes Discharge Plan Discharge Items Patient Disposition: Home - Self-Care Reason For Visit: PE Discharge Diagnosis: Acute Pulmonary Embolism Acute right leg deep vein thrombosis Activity: Per Instructions section Exercise/Sports: Wait until after follow-up appointment Non-emergency contact: Primary Care Provider Call non-emergency contact if: you have any medication questions, your symptoms worsen, your pain is concerning for you and you have a fever Follow-up/Referrals: Ayanna Wayne MD [Primary Care Provider] - (Date & Time 11/24/2021 11:00 AM Provider Ayanna Wayne MD Department General Internal Medicine [facility] ) Diet: Heart Healthy Addtl Attending Provider Instructions: Follow up with your PCP on 11/24/2021 11:00 AM --Continue Apixaban (Eliquis) 10mg Twice a day for 7 days and then take 5mg twice a day. --Duration of Apixaban treatment to be determined by your Primary Care physician. --Get Hypercoagulable work up (Blood work) as outpatient for further assessing your risk for blood clots. --Do not take group of medications belonging to NSAIDs group -can cause worsen your risk for bleeding. List Of these medications includes but not limited to: Aspirin Diclofenac Ibuprofen, Motrin, Advil Toradol,ketorolac Naproxen, Aleve, Naprosyn You can take Tylenol as needed for pain or fever When buying [id number] pain medications please consult with pharmacy if you are not sure regarding ingredients, as a lot of the pain medications have combination of NSAIDs and Tylenol. --Seek immediate medical attention if your symptoms reoccur or worsen Please take all medications as instructed on discharge list below. Please call if you have any questions or problems. You can reach a [facility] hospitalist on duty at [facility] 24 hours a day by calling [phone] Pending Studies at Discharge: No Stand-Alone Forms: My [facility] [employer], Smoking Cessation Medications and DC Order Prescriptions: New Eliquis 5 mg (74 tabs) tablets,dose pack 5 mg PO UD Qty: 74 RF: 0 Continued multivitamin Tablet 1 tab PO QAM RF: 0 vitamin E 200 unit Capsule 200 unit PO QAM RF: 0 acetaminophen 500 mg Tablet 500 mg PO Q8 PRN (Reason: Pain) RF: 0 vitamin B complex Tablet 1 tab PO QAM RF: 0 melatonin 1 mg Tablet 1.5 mg PO HS PRN (Reason: Insomnia) RF: 0 Calcium 600 + D(3) 600 mg calcium- 200 unit Capsule 1 tab PO QAM RF: 0 baclofen 10 mg tablet 10 mg PO BID PRN (Reason: Spasms) RF: 0 magnesium 250 mg Tablet 250 mg PO DAILY RF: 0 grape seed extract 50 mg Capsule 150 mg PO DAILY RF: 0 Discontinued ibuprofen 200 mg Tablet 400 - 600 mg PO Q6 PRN (Reason: Pain) RF: 0 Discharge Orders: Discharge Order (Routine); Ordered 11/18/21 Ordered By: Zia oCffey Admission Data Admit Date/Time: 11/17/21 15:25 Attending Provider: Zia Coffey Admit Provider: Zia Coffey Primary Care Provider: Ayanna Wayne Other Providers: Zia Coffey
== END 2021-11-18 15:57 | disposition home or self-care (01) ==
LOC: ED 14:01 → 2S 14:01
DX: Z98.890 Other specified postprocedural states; I82.401 Acute embolism and thrombosis of unspecified deep veins of right lower extremity; I26.99 Other pulmonary embolism without acute cor pulmonale; R01.1 Cardiac murmur, unspecified; M54.12 Radiculopathy, cervical region; Z20.822 Contact with and (suspected) exposure to COVID-19; Z91.030 Bee allergy status